=== PATIENT | male | born 1965 | race Caucasian/White ===

== ENCOUNTER → 2017-11-15 | Outpatient (CLI) | payer BC ==
--- NOTE | 2017-11-15 13:21 | CT ---
EXAMINATION TYPE: CT abdomen w con DATE OF EXAM: 11/15/2017 COMPARISON: CT 08/24/2011 HISTORY: Epigastric pain CT DLP: 1860.60 mGycm Automated exposure control for dose reduction was used. TECHNIQUE: Helical acquisition of images was performed from the lung bases through the top of iliac crest to include entire abdomen. CONTRAST: Performed with Oral Contrast and with IV Contrast, patient injected with 100 mL of Isovue 300. FINDINGS: Suspect a small hiatal hernia. LUNG BASES: No significant abnormality is appreciated. LIVER/GB: Liver shows low attenuation possibly due to hepatic steatosis, gallbladder is normal. Punct ate calcification present at the posterior liver edge is stable. PANCREAS: No significant abnormality is seen. SPLEEN: No significant abnormality is seen. ADRENALS: No significant abnormality is seen. KIDNEYS: No significant abnormality is seen. Small cystic focus present posterior cortex lower pole m easures only 12 mm BOWEL: No significant abnormality is seen. LYMPH NODES: No significant abnormality is appreciated. OSSEOUS STRUCTURES: No significant abnormality is seen. FREE AIR: No Free Air visible ASCITES: None visible. RETROPERITONEAL ADENOPATHY: No Retroperitoneal Adenopathy visible. OTHER: There is eventration of the right hemidiaphragm. IMPRESSION: CORRELATE FOR POSSIBLE HEPATIC STEATOSIS. STABLE CALCIFICATION DESCRIBED. POSSIBLE SMALL HIATAL HE RNIA.
== END | disposition home or self-care (01) ==
LOC: RADCTMAIN 11:22
PROVIDERS: ATTEND Internal Medicine
DX: K76.89 Other specified diseases of liver (principal); R10.12 Left upper quadrant pain
CPT/HCPCS: 74160; Q9967

== ENCOUNTER 2023-08-11 11:29 | Day surgery (SDC) | payer BC ==
[2023-08-05 14:38] VITALS: BMI 37.2
[~2023-08-11 11:29] MED LIST: ALPRAZolam 0.25 MG TAB PO PRN; ALPRAZolam 0.5 MG TAB PO PRN; ASPIRIN 325 MG TAB PO ONE; HEPARIN SODIUM,PORCINE (1 ML) 2,500 UNIT in SODIUM CHLORIDE 0.9% 250 ML IRRIGATION PRN; HEPARIN SODIUM,PORCINE 10,000 UNIT in SODIUM CHLORIDE 0.9% 1,000 ML IRRIGATION PRN; NITROGLYCERIN SL TABS 0.4 MG TAB SUBLINGUAL PRN; SODIUM CHLORIDE 0.9% 1,000 ML in EMPTY BAG 1 BAG IV SCH
[2023-08-11] MEDS ORDERED: SODIUM CHLORIDE 0.9% 1,000 ML IV ONE (11:51)
[2023-08-11 11:52] LABS: Basophils # (A) 0.1 k/uL (0-0.2); Basophils % (A) 1 %; Eosinophils # (A) 0.2 k/uL (0-0.7); Eosinophils % (A) 3 %; HCT 49.8 % (39.0-53.0); HGB 17.2 gm/dL (13.0-17.5); Lymphocytes # (A) 1.9 k/uL (1.0-4.8); Lymphocytes % (A) 29 %; MCH 30.8 pg (25.0-35.0); MCHC 34.5 g/dL (31.0-37.0); MCV 89.3 fL (80.0-100.0); Monocytes # (A) 0.4 k/uL (0-1.0); Monocytes % (A) 6 %; Neutrophils # (A) 3.8 k/uL (1.3-7.7); Neutrophils % (A) 59 %; Platelet Count 221 k/uL (150-450); RBC 5.58 m/uL (4.30-5.90); RDW 13.4 % (11.5-15.5); WBC 6.4 k/uL (3.8-10.6)
[2023-08-11 12:07] LABS: African American GFR (CKD) >90 (>60 ml/min/1.73 sqM); Anion Gap 8 mmol/L; Blood Urea Nitrogen 19 mg/dL (9-20); Calcium 9.2 mg/dL (8.4-10.2); Carbon Dioxide 30 mmol/L (22-30); Chloride 100 mmol/L (98-107); Glucose 93 mg/dL (74-99); Non-African American GFR(CKD) >90 (>60 ml/min/1.73 sqM); Potassium 4.4 mmol/L (3.5-5.1); Sodium 138 mmol/L (137-145)
[2023-08-11] MEDS ORDERED: VERAPAMIL 2.5 MG/ML 2 ML AMP ONE (12:14)
[2023-08-11] MEDS ORDERED: HEPARIN SODIUM 1,000 UN/ML (10ML VL) ONE (12:14)
[2023-08-11] MEDS ORDERED: LIDOCAINE 1% INJ 10MG/ML (20 ML MDV) ONE (12:14)
[2023-08-11] MEDS ORDERED: MIDAZOLAM 2 MG/2 ML VIAL IVP ONE (12:40)
[2023-08-11] MEDS ORDERED: LIDOCAINE 1% INJ 10MG/ML (20 ML MDV) SQ ONE (12:42)
[2023-08-11] MEDS ORDERED: VERAPAMIL SYRINGE (5 MG/10 ML) INTRAARTER ONE (12:43)
[2023-08-11] MEDS ORDERED: HEPARIN SODIUM 1,000 UN/ML (10ML VL) IV ONE (12:47)
[2023-08-11] MEDS ORDERED: IOPAMIDOL-370 100ML BTL INJ ONE (12:52)
[2023-08-11 12:53] VITALS: TEMP 98.2
[2023-08-11] MEDS ORDERED: RX INFO: IV CONTRAST WAS GIVEN 1 EACH MISC MISCELLANE PRN (12:55)
--- NOTE | 2023-08-11 12:59 | P.PCN ---
Date of Procedure: 08/11/23 Operative Findings: CARDIAC CATHETERIZATION PERFORMING PHYSICIAN: Jean-Pierre Garcia MD, RPVI PROCEDURE PERFORMED: 1. Selective right and left coronary angiogram 2. Left heart catheterization 3. Ultrasound-guided access of the right radial artery INDICATION: Symptomatic 57-year-old gentleman who underwent a stress test before noncardiac surgery and the stenosis came in to be of normal COMPLICATION: None APPROACH: Right radial artery LEVEL OF SEDATION: Moderate with a sedation length of 10 minutes PROCEDURE DESCRIPTION: After obtaining an informed consent, the patient was brought to cardiac lift slab operator. Local anesthesia was performed using lidocaine subcutaneously. The right radial artery was cannulated using Seldinger technique, the guidewire passed easily, following that we advanced a 5-Dutch sheath dilator assembly, the wire and dilator were removed and sheath was flushed. Following that, 2 mg of verapamil along with 5000 unit heparin were given. Selective right and left coronary angiogram using a 6-Dutch JR4 and JL 3.5 catheters. Following that we did left heart catheterization using 6-Dutch pigtail catheter. The procedure was completed there was no complication. SELECTIVE CORONARY ANGIOGRAM: The right coronary artery: Large-caliber vessel and a dominant vessel and appeared to be angiographically normal. Distally bifurcates into PDA and PLV branches both appeared to be angiographically normal Left main: Is angiographically normal. Bifurcates into an LCx and LAD The left circumflex: Large-caliber vessel nondominant vessel. The LCx is angiographically normal and gives rises into the first and second obtuse marginal branches and the third obtuse marginal branch is worse as almost PDA and appeared to be normal. The left anterior descending artery: Large-caliber vessel. The LAD is angiographically normal. Gives rises into large first and second diagonal branches appears to be normal HEMODYNAMICS: The was 14 mmHg was no significant gradient across aortic valve CONCLUSION: 1. Normal coronary angiogram 2. Normal left-sided filling pressure POSTPROCEDURE MANAGEMENT: Medical treatment
[2023-08-11] MEDS ORDERED: SODIUM CHLORIDE 0.9% 1,000 ML IV SCH (13:00)
[2023-08-11 15:19] VITALS: BP 155/84; PULSE 67; RESP 16
== END 2023-08-11 16:24 | disposition home or self-care (01) ==
LOC: CATHCVL 11:29
PROVIDERS: ATTEND Internal Medicine Interventional Cardiology
DX: I25.10 Atherosclerotic heart disease of native coronary artery without angina pectoris (principal); E78.5 Hyperlipidemia, unspecified; E66.3 Overweight; G47.33 Obstructive sleep apnea (adult) (pediatric); F17.210 Nicotine dependence, cigarettes, uncomplicated; Z79.899 Other long term (current) drug therapy
CPT/HCPCS: 93458; 80048; 85025; 99152; C1769; C1894; J2250; J2001; J1644; Q9967

== ENCOUNTER 2023-08-18 13:42 | Emergency (ER) | payer BC ==
[2023-08-18] MEDS ORDERED: HYDROmorphone 1 MG/ML 1 ML SYRINGE IVP STA ×4 (14:30→20:31)
[2023-08-18] MEDS ORDERED: ONDANSETRON 4 MG/2 ML VIAL IVP STA (14:30)
[2023-08-18] MEDS ORDERED: CAFFEINE-SODIUM BENZOATE 500 MG in SODIUM CHLORIDE 0.9% 1,000 ML IVPB ONE (15:00)
[2023-08-18 15:12] LABS: Basophils # (A) 0.1 k/uL (0-0.2); Basophils % (A) 0 %; Eosinophils # (A) 0.2 k/uL (0-0.7); Eosinophils % (A) 1 %; HCT 42.9 % (39.0-53.0); HGB 14.7 gm/dL (13.0-17.5); Lymphocytes # (A) 2.1 k/uL (1.0-4.8); Lymphocytes % (A) 17 %; MCH 29.9 pg (25.0-35.0); MCHC 34.3 g/dL (31.0-37.0); MCV 87.2 fL (80.0-100.0); Mean Platelet Volume 7.9; Monocytes # (A) 1.2 k/uL (0-1.0); Monocytes % (A) 10 %; Neutrophils # (A) 8.9 k/uL (1.3-7.7); Neutrophils % (A) 70 %; Platelet Count 267 k/uL (150-450); RBC 4.93 m/uL (4.30-5.90); RDW 12.8 % (11.5-15.5); WBC 12.6 k/uL (3.8-10.6)
--- NOTE | 2023-08-18 15:20 | ED ---
Headache HPI - General Source: patient, RN notes reviewed Mode of arrival: ambulatory Limitations: no limitations <Yosi Verduzco - Last Filed: 08/18/23 15:18> <Hector Hollins - Last Filed: 08/18/23 20:41> - General Chief Complaint: Headache Stated Complaint: poss post op comp Time Seen by Provider: 08/18/23 14:15 - History of Present Illness Initial Comments: 57-year-old male presents emergency Department with chief complaint of headache. Patient states that he had lumbar fusion, laminectomy, discectomy at [facility] on 08/13/2023 and was discharged home 1H doesn't 24. Patient states that he did not have any change of his pain medication. He states that he started having slight headache but symptoms worsened overnight. He states he gets extreme headache when he stands upright. He states it sharp shooting pain up the back of his head into his temporal, frontal region. Patient states he contacted the surgeon's office and they're concerned about possible spinal headache. Patient states he does have some mild back pain he states he is fine when he lays down but he does develop severe pain, becomes diaphoretic with the pain. Denies chest pain shortness of breath no recent cough or cold like symptoms. No fever reported. (Yosi Verduzco) - Related Data Home Medications Medication Instructions Recorded Confirmed DULoxetine HCL [Cymbalta] 60 mg PO HS 08/05/23 08/18/23 RABEprazole SODIUM [Aciphex] 20 mg PO HS 08/05/23 08/18/23 Acetaminophen Tab [Tylenol Tab] 1,500 mg PO Q6HR PRN 08/18/23 08/18/23 Docusate [Colace] 100 mg PO BID PRN 08/18/23 08/18/23 clonazePAM [KlonoPIN] 1 mg PO BID PRN 08/18/23 08/18/23 lamoTRIgine 50 mg PO HS 08/18/23 08/18/23 methocarbamoL 750 mg PO Q6H PRN 08/18/23 08/18/23 oxyCODONE HCL [oxyCODONE HCL (IR)] 10 mg PO Q4H PRN 08/18/23 08/18/23 Allergies Allergy/AdvReac Type Severity Reaction Status Date / Time No Known Allergies Allergy Verified 08/18/23 15:27 Review of Systems ROS Other: All systems not noted in ROS Statement are negative. <Yosi Verduzco - Last Filed: 08/18/23 15:18> ROS Other: All systems not noted in ROS Statement are negative. <GurvinderHector - Last Filed: 08/18/23 20:41> ROS Statement: Those systems with pertinent positive or pertinent negative responses have been documented in the HPI. Past Medical History Past Medical History: Hearing Disorder / Deafness, Hyperlipidemia, Osteoarthritis (OA), Sleep Apnea/CPAP/BIPAP Additional Past Medical History / Comment(s): Due to have back surgery in August, having heart catheterization due to abnormal EKG. Hx gastritis. Bilateral hearing aid use. CPAP use. History of Any Multi-Drug Resistant Organisms: None Reported Past Surgical History: Back Surgery, Orthopedic Surgery Additional Past Surgical History / Comment(s): Bilateral knee surgery, neck fusion, back fusion, right shoulder surgery. Past Anesthesia/Blood Transfusion Reactions: No Reported Reaction Past Psychological History: Anxiety, Depression Smoking Status: Former smoker Past Alcohol Use History: Occasional Past Drug Use History: None Reported - Past Family History Father Family Medical History: Cancer Additional Family Medical History / Comment(s): Prostate cancer. <Yosi Verduzco - Last Filed: 08/18/23 15:18> General Exam Limitations: no limitations General appearance: alert, in no apparent distress Head exam: Present: atraumatic, normocephalic, normal inspection Eye exam: Present: normal appearance ENT exam: Present: normal exam, mucous membranes moist Neck exam: Present: normal inspection, full ROM. Absent: tenderness, meningismus, lymphadenopathy Respiratory exam: Present: normal lung sounds bilaterally. Absent: respiratory distress, wheezes, rales, rhonchi, stridor Cardiovascular Exam: Present: regular rate, normal rhythm, normal heart sounds. Absent: systolic murmur, diastolic murmur, rubs, gallop, clicks Back exam: Present: tenderness. Absent: full ROM Neurological exam: Present: alert, oriented X3, CN II-XII intact, reflexes normal. Absent: motor sensory deficit Skin exam: Present: warm, dry, intact, normal color. Absent: rash <Yosi Verduzco - Last Filed: 08/18/23 15:18> Course Vital Signs 08/18/23 13:43 Temperature 97.9 F Pulse Rate 91 Respiratory 18 Rate Blood Pressure 131/79 O2 Sat by Pulse 95 Oximetry Medical Decision Making - Lab Data Result diagrams: 08/18/23 14:36 <LubaYosi - Last Filed: 08/18/23 15:18> - Lab Data Result diagrams: 08/18/23 14:36 08/18/23 14:36 <GurvinderHector - Last Filed: 08/18/23 20:41> - Medical Decision Making The patient was endorsed to me at shift change from Yosi JUNIOR pending results from medications administered. Patient does complain initially of a headache almost 10/10 frontal in nature worse with upright positioning patient did get IV medication and IV caffeine and did get improvement. At one point states the pain was about 6/10 in severity and he has fluctuated somewhat. After long discussion with the patient he would like to go home he will follow-up tomorrow with [facility] with his surgeon. He does have adequate oral pain medication. He does have a ride home at this time. The patient is in agreement with this and will be sent home after additional IV medication.Was pt. sent in by a medical professional or institution ([facility], [facility], urgent care, hospital, or long-term...) When possible be specific @ -No Did you speak to anyone other than the patient for history (EMS, parent, family, police, friend...)? What history was obtained from this source @ -Yosi Verduzco at shift change Did you review nursing and triage notes (agree or disagree)? Why? @ -I reviewed and agree with nursing and triage notes Were old charts reviewed (outside hosp., previous admission, EMS record, old EKG, old radiological studies, urgent care reports/EKG's, long-term records)? Report findings @ -No old charts were reviewed Differential Diagnosis (chest pain, altered mental status, abdominal pain women, abdominal pain men, vaginal bleeding, weakness, fever, dyspnea, syncope, headache, dizziness, GI bleed, back pain, seizure, CVA, palpatations, mental health, musculoskeletal)? @ -not applicable EKG interpreted by me (3pts min.). @ -Not indicated X-rays interpreted by me (1pt min.). @ -X-rays interpreted by me no acute process. CT interpreted by me (1pt min.). @ -None done U/S interpreted by me (1pt. min.). @ -None done What testing was considered but not performed or refused? (CT, X-rays, U/S, labs)? Why? @ -None What meds were considered but not given or refused? Why? @ -None Did you discuss the management of the patient with other professionals (professionals i.e. Dr., PA, [facility], lab, RT, psych nurse, social media manager, criminal lawyer, teacher, nuclear officer, case management associate)? Give summary @ -No Was smoking cessation discussed for >3mins.? @ -No Was critical care preformed (if so, how long)? @ -No Were there social determinants of health that impacted care today? How? (Homelessness, low income, unemployed, alcoholism, drug addiction, transportation, low edu. Level, literacy, decrease access to med. care, care home, rehab)? @ -No Was there de-escalation of care discussed even if they declined (Discuss DNR or withdrawal of care, Hospice)? DNR status @ -No What co-morbidities impacted this encounter? (DM, HTN, Smoking, COPD, CAD, Cancer, CVA, ARF, Chemo, Hep., AIDS, mental health diagnosis, sleep apnea, morbid obesity)? @ -None Was patient admitted / discharged? Hospital course, mention meds given and route, prescriptions, significant lab abnormalities, going to OR and other pertinent info. @ -hospital course long discussion with patient he would like to go home and follow-up tomorrow with [facility]. We did discuss different options. He does have adequate pain medication for home to take orally. Prior to discharge he was given a milligram of Dilaudid 1 mg Ativan. He has an agreement with this. We did discuss the possibility of a spinal fluid leak as the reason for his headache. He again will follow-up with his doctor tomorrow Undiagnosed new problem with uncertain prognosis? @ -No Drug Therapy requiring intensive monitoring for toxicity (Heparin, Nitro, Insulin, Cardizem)? @ -No Were any procedures done? @ -No Diagnosis/symptom? @ -Acute cephalgia] Acute, or Chronic, or Acute on Chronic? @ - Uncomplicated (without systemic symptoms) or Complicated (systemic symptoms)? @ -default Side effects of treatment? @ -No Exacerbation, Progression, or Severe Exacerbation? @ -Exacerbation Poses a threat to life or bodily function? How? (Chest pain, [place], DE, pneumonia, PE, COPD, DKA, ARF, appy, cholecystitis, CVA, Diverticulitis, Homicidal, Suicidal, threat to staff... and all critical care pts) @ -No (Hector Hollins) - Lab Data Lab Results 08/18/23 08/18/23 08/18/23 Range/Units 14:36 14:36 14:36 WBC 12.6 H (3.8-10.6) k/uL RBC 4.93 (4.30-5.90) m/uL Hgb 14.7 (13.0-17.5) gm/dL Hct 42.9 (39.0-53.0) % MCV 87.2 (80.0-100.0) fL MCH 29.9 (25.0-35.0) pg MCHC 34.3 (31.0-37.0) g/dL RDW 12.8 (11.5-15.5) % Plt Count 267 (150-450) k/uL MPV 7.9 Neutrophils % 70 % Lymphocytes % 17 % Monocytes % 10 % Eosinophils % 1 % Basophils % 0 % Neutrophils # 8.9 H (1.3-7.7) k/uL Lymphocytes # 2.1 (1.0-4.8) k/uL Monocytes # 1.2 H (0-1.0) k/uL Eosinophils # 0.2 (0-0.7) k/uL Basophils # 0.1 (0-0.2) k/uL Sodium 133 L (137-145) mmol/L Potassium 4.3 (3.5-5.1) mmol/L Chloride 94 L (98-107) mmol/L Carbon Dioxide 27 (22-30) mmol/L Anion Gap 12 mmol/L BUN 16 (9-20) mg/dL Creatinine 0.88 (0.66-1.25) mg/dL Est GFR (CKD-EPI)AfAm >90 (>60 ml/min/1.73 sqM) Est GFR (CKD-EPI)NonAf >90 (>60 ml/min/1.73 sqM) Glucose 102 H (74-99) mg/dL Plasma Lactic Acid Bernardo 0.9 (0.7-2.0) mmol/L Calcium 9.0 (8.4-10.2) mg/dL Total Bilirubin 2.9 H (0.2-1.3) mg/dL AST 36 (17-59) U/L ALT 70 H (4-49) U/L Alkaline Phosphatase 90 (38-126) U/L Total Protein 7.1 (6.3-8.2) g/dL Albumin 4.0 (3.5-5.0) g/dL Influenza Type A (PCR) (Not Detectd) Influenza Type B (PCR) (Not Detectd) RSV (PCR) (Not Detectd) SARS-CoV-2 (PCR) (Not Detectd) 08/18/23 Range/Units 14:36 WBC (3.8-10.6) k/uL RBC (4.30-5.90) m/uL Hgb (13.0-17.5) gm/dL Hct (39.0-53.0) % MCV (80.0-100.0) fL MCH (25.0-35.0) pg MCHC (31.0-37.0) g/dL RDW (11.5-15.5) % Plt Count (150-450) k/uL MPV Neutrophils % % Lymphocytes % % Monocytes % % Eosinophils % % Basophils % % Neutrophils # (1.3-7.7) k/uL Lymphocytes # (1.0-4.8) k/uL Monocytes # (0-1.0) k/uL Eosinophils # (0-0.7) k/uL Basophils # (0-0.2) k/uL Sodium (137-145) mmol/L Potassium (3.5-5.1) mmol/L Chloride (98-107) mmol/L Carbon Dioxide (22-30) mmol/L Anion Gap mmol/L BUN (9-20) mg/dL Creatinine (0.66-1.25) mg/dL Est GFR (CKD-EPI)AfAm (>60 ml/min/1.73 sqM) Est GFR (CKD-EPI)NonAf (>60 ml/min/1.73 sqM) Glucose (74-99) mg/dL Plasma Lactic Acid Bernardo (0.7-2.0) mmol/L Calcium (8.4-10.2) mg/dL Total Bilirubin (0.2-1.3) mg/dL AST (17-59) U/L ALT (4-49) U/L Alkaline Phosphatase (38-126) U/L Total Protein (6.3-8.2) g/dL Albumin (3.5-5.0) g/dL Influenza Type A (PCR) Not Detected (Not Detectd) Influenza Type B (PCR) Not Detected (Not Detectd) RSV (PCR) Not Detected (Not Detectd) SARS-CoV-2 (PCR) Not Detected (Not Detectd) Disposition <Yosi Verduzco - Last Filed: 08/18/23 15:18> Is patient prescribed a controlled substance at d/c from ED?: No Decision Date: 08/18/23 Decision Time: 20:41 <Hector Hollins - Last Filed: 08/18/23 20:41> Clinical Impression: Cephalgia Disposition: HOME SELF-CARE Condition: Stable Instructions (If sedation given, give patient instructions): Acute Headache (ED) Additional Instructions: Take her medications as prescribed Referrals: Dulce Maria Foster MD [Primary Care Provider] - 1-2 days
--- NOTE | 2023-08-18 15:37 | XR ---
EXAMINATION TYPE: XR chest 2V DATE OF EXAM: 08/18/2023 COMPARISON: 08/12/2011 HISTORY: 57-year-old male posterior pain, recent low back surgery on 08/13/2022 TECHNIQUE: PA and lateral views FINDINGS: ACF hardware. Heart normal size. Aorta and pulmonary vasculature are within normal limits. No consoli dation or pleural effusion. IMPRESSION: No acute cardiopulmonary process.
--- NOTE | 2023-08-18 15:39 | XR ---
EXAMINATION TYPE: XR lumbar spine 3V DATE OF EXAM: 08/18/2023 Comparison: 07/28/2012 Clinical History: 57-year-old male pain. Recent lower back surgery on 08/13/2022 Findings: Mild to moderate degenerative disc disease throughout with disc space narrowing and endplate spondylo sis. Post surgical change L4-S1 posterior and interbody fusion. Bone graft material noted on the AP v iew of lateral osseous fusion but with incomplete consolidation. There is degenerative grade 1 retrol isthesis L2-L3 and L3-L4. Vertebral body heights are preserved. Impression: 1. Status post L4-S1 posterior and interbody fusion. Bone graft material relating to lateral osseous fusion. 2. Mild to moderate degenerative disc disease throughout. 3. Degenerative grade 1 retrolisthesis L2-L3 and and L3-L4. 4. No vertebral compression collapse.
[2023-08-18 15:51] LABS: ALT 70 U/L (4-49); AST 36 U/L (17-59); African American GFR (CKD) >90 (>60 ml/min/1.73 sqM); Alkaline Phosphatase 90 U/L (38-126); Blood Urea Nitrogen 16 mg/dL (9-20); Carbon Dioxide 27 mmol/L (22-30); Glucose 102 mg/dL (74-99); Non-African American GFR(CKD) >90 (>60 ml/min/1.73 sqM); Total Bilirubin 2.9 mg/dL (0.2-1.3); Total Protein 7.1 g/dL (6.3-8.2)
[2023-08-18 16:47] LABS: Anion Gap 12 mmol/L; Chloride 94 mmol/L (98-107); Potassium 4.3 mmol/L (3.5-5.1); Sodium 133 mmol/L (137-145)
[2023-08-18] MEDS ORDERED: SODIUM CHLORIDE 0.9% 500 ML 500 ML IV STA (18:06)
[2023-08-18] MEDS ORDERED: LORazepam 2 MG/ML INJ IV STA (20:33)
[2023-08-18 21:13] VITALS: BP 130/76; PULSE 88; RESP 17; TEMP 97.6
== END 2023-08-18 21:10 | disposition home or self-care (01) ==
LOC: EC 13:42
DX: R51.9 Headache, unspecified (principal); M54.50 Low back pain, unspecified; F32.A Depression, unspecified; F41.9 Anxiety disorder, unspecified; M19.90 Unspecified osteoarthritis, unspecified site; Z20.822 Contact with and (suspected) exposure to COVID-19; Z79.899 Other long term (current) drug therapy; Z87.891 Personal history of nicotine dependence
CPT/HCPCS: 36415; 80053; 83605; 85025; 87040; 87636; 72100; 71046; 99284; 96365; 96375 ×3; 96376 ×3; 96361; J2060; J2405; J1170